=== PATIENT | female | born 1945 | race Caucasian/White ===

== ENCOUNTER 2018-07-25 21:47 | Inpatient (IN) | payer MEDICARE, OTHER ==
[~2018-07-25] VITALS: Ht 160 cm; Wt 80.9 kg
[2018-07-25 22:10] VITALS: BP 145/82
[2018-07-25] MEDS ORDERED: Solu-MEDROL 125mg Inj IVP ONE (22:15)
[2018-07-25] MEDS ORDERED: Albuterol ud Inhalation HHN ONE ×2 (22:15→23:15)
[2018-07-25] MEDS ORDERED: Ipratropium 0.02% Inh Soln 2.5ml UD HHN ONE (22:15)
--- NOTE | 2018-07-25 22:24 | Emergency Room Report ---
History of Present Illness General Chief Complaint: Dyspnea/Respdistress Source: Patient, EMS Present Illness HPI This is a 72-year-old female with history of atrial fibrillation and COPD. She presents with chief complaint shortness of breath. Onset was today. She was just discharged from [facility] and after a five-day hospital stay. She was well for a few hours and was walking around the house and became short of breath again. She called 911. EMS said she was tight and hypoxic. She was wheezing. They brought her here. Patient denies any fever chills. Denies any nausea vomiting. Nothing made it better. Exertion makes it worse. Allergies: Coded Allergies: DIPHENHYDRAMINE (Verified Allergy, Unknown, 07/25/18) ERYTHROMYCIN BASE (Verified Allergy, Unknown, 07/25/18) IBUPROFEN (Verified Allergy, Unknown, 07/25/18) SIMVASTATIN (Verified Allergy, Unknown, 07/25/18) SULFA (SULFONAMIDE ANTIBIOTICS) (Verified Allergy, Unknown, 07/25/18) Patient History Past Medical History: see triage record, old chart reviewed, HTN, CAD, AFib, COPD Past Surgical History: other Pertinent Family History: none Social History: Denies: smoking Now: No Immunizations: other Reviewed Nursing Documentation: PMH: Agreed; PSxH: Agreed Nursing Documentation-PMH Hx Cardiac Problems: Yes - High Cholesterol Hx Hypertension: Yes Hx COPD: Yes Hx Diabetes: Yes Review of Systems Eye: Denies: eye pain, blurred vision ENT: Denies: ear pain, nose congestion, throat swelling Respiratory: Reports: cough, shortness of breath, wheezing Cardiovascular: Denies: chest pain, palpitations Gastrointestinal: Denies: abdominal pain, diarrhea, nausea, vomiting Musculoskeletal: Denies: back pain, joint pain Skin: Denies: rash Neurological: Denies: headache, numbness Endocrine: Denies: increased thirst, increased urine Hematologic/Lymphatic: Denies: easy bruising All Other Systems: negative except mentioned in HPI Physical Exam Vital Signs Date Time Temp Pulse Resp B/P (MAP) Pulse Ox O2 Delivery O2 Flow Rate FiO2 07/25/18 21:53 98.2 108 22 145/82 100 Non-Rebreather vitals with tachycardia and hypoxia Sp02 EP Interpretation: reviewed, abnormal General Appearance: well appearing, alert, mild distress Head: normocephalic, atraumatic Eyes: bilateral eye PERRL, bilateral eye EOMI ENT: hearing grossly normal, normal pharynx Neck: full range of motion, supple, no meningismus Respiratory: chest non-tender, respiratory distress, decreased breath sounds, accessory muscle use, wheezing Cardiovascular #1: regular rate, rhythm, no murmur Gastrointestinal: normal bowel sounds, non tender, no mass, no organomegaly, no bruit, non-distended Musculoskeletal: back normal, gait/station normal, normal range of motion, swelling - One to 2+ pitting edema Psychiatric: mood/affect normal Skin: warm/dry Procedures Critical Care Time Critical Care Time Critical care is mandated in this patient who presented with respiratory distress secondary to chf and copd. Patient require my urgent intervention to attenuate the risks of respiratory collapse which may lead to cardiovascular collapse and . Critical care time is 35 minutes excluding any reportable procedure. Critical care time included evaluation, multiple reevaluation, looking at old charts, interpreting laboratory and diagnostic data, discussing case with patient and family and consultants, and charting. Medical Decision Making Diagnostic Impression: Primary Impression: Acute on chronic respiratory failure with hypoxia Additional Impressions: Rapid atrial fibrillation COPD with exacerbation Acute exacerbation of CHF (congestive heart failure) Qualified Codes: I50.9 - Heart failure, unspecified Anemia Qualified Codes: D64.9 - Anemia, unspecified Acute prerenal azotemia ER Course Patient with respiratory distress secondary to accommodation of CHF and COPD exacerbation. CHF may be caused by her rapid A. fib. Rate is controlled with Cardizem. Her elevated WBC may be secondary steroid induced and stress response. She is currently taking antibiotics. No obvious infiltrate on the chest x-ray. No evidence of ACS, PE, dissection to name a few. Patient is currently taking Xarelto. I discussed the case with Dr. Reveles who [facility]. Lab Results Impression labs with elevated BNP EKG Diagnostic Results Rate: tachycardiac Rhythm: other - afib ST Segments: other - NSST changes Rhythm Strip Diag. Results EP Interpretation: yes Rate: 90 Rhythm: no PVC's, no ectopy, other - afib Chest X-Ray Diagnostic Results Chest X-Ray Diagnostic Results : Chest X-Ray Ordered: Yes # of Views/Limited/Complete: 1 View Indication: Shortness of Breath EP Interpretation: Yes Interpretation: no consolidation, no pneumothorax, other - Cardiomegaly with mild vascular congestion Impression: Other - CM with chf Electronically Signed by: Gal Issa MD Last Vital Signs Date Time Temp Pulse Resp B/P (MAP) Pulse Ox O2 Delivery O2 Flow Rate FiO2 07/25/18 21:53 98.2 108 22 145/82 100 Non-Rebreather Status: improved Disposition: ADMITTED INPATIENT Condition: Serious Gal Issa MD Jul 25, 2018 22:24
[2018-07-26] VITALS (7 sets, daily range): BP systolic 134–158; BP diastolic 53–79
[2018-07-26 00:08] LABS: BASOPHILS % (AUTO) 0.3 % (0.0-2.0); EOSINOPHILS % (AUTO) 0.6 % (0.0-3.0); HEMATOCRIT 27.3 % (37.0-47.0); HEMOGLOBIN 8.5 G/DL (12.0-16.0); LYMPHOCYTES % (AUTO) 9.1 % (20.0-45.0); MEAN CORPUSCULAR VOLUME 79 FL (80-99); MONOCYTES % (AUTO) 7.7 % (1.0-10.0); NEUTROPHILS % (AUTO) 82.3 % (45.0-75.0); PLATELET COUNT 409 K/UL (150-450); RED BLOOD COUNT 3.43 M/UL (4.20-5.40); RED CELL DISTRIBUTION WIDTH 16.3 % (11.6-14.8); WHITE BLOOD COUNT 16.1 K/UL (4.8-10.8)
[2018-07-26] MEDS ORDERED: PREDNISONE10 MG ORAL (00:12)
[2018-07-26] MEDS ORDERED: ANORO ELLIPTA1 EACH PO (00:12)
[2018-07-26] MEDS ORDERED: ALBUTEROL SULF8.5 GM INH (00:12)
[2018-07-26] MEDS ORDERED: ALBUTEROL2.5 MG/3 M INH (00:12)
[2018-07-26] MEDS ORDERED: ASPIRIN81 MG ORAL (00:12)
[2018-07-26] MEDS ORDERED: QVAR7.3 GM INH (00:12)
[2018-07-26] MEDS ORDERED: PRAVASTATIN SOD20 M1 ORAL (00:12)
[2018-07-26] MEDS ORDERED: XARELTO10 MG ORAL (00:12)
[2018-07-26] MEDS ORDERED: VITAMIN D1000 UNI1 ORAL (00:12)
[2018-07-26] MEDS ORDERED: HYDROCODON-ACE1 EA15 ORAL (00:12)
[2018-07-26] MEDS ORDERED: FERROUS SULFAT325 MG ORAL (00:12)
[2018-07-26] MEDS ORDERED: DILTIAZEM 24HR120 M2 PO (00:12)
[2018-07-26 00:24] LABS: ANION GAP 6 mmol/L (5-15); BLOOD UREA NITROGEN 28 mg/dL (7-18); CALCIUM 10.2 MG/DL (8.5-10.1); CARBON DIOXIDE 33 MMOL/L (21-32); CHLORIDE 99 MMOL/L (98-107); CREATININE 1.1 MG/DL (0.55-1.30); POTASSIUM 4.2 MMOL/L (3.5-5.1); SODIUM 138 MMOL/L (136-145)
[2018-07-26 00:25] LABS: INR 1.3 (0.9-1.1)
[2018-07-26 00:37] LABS: ALANINE AMINOTRANSFERASE 22 U/L (12-78); ALBUMIN 3.6 G/DL (3.4-5.0); ALKALINE PHOSPHATASE 57 U/L (46-116); ASPARTATE AMINO TRANSFERASE 19 U/L (15-37); BILIRUBIN,TOTAL 0.6 MG/DL (0.2-1.0); CKMB 1.3 NG/ML (0.0-3.6); CREATINE KINASE 33 U/L (26-308)
[2018-07-26] MEDS ORDERED: dilTIAZem HCl 25mg/5ml Inj IVP ONE ×2 (01:15→02:00)
[2018-07-26 01:56] LABS: APPEARANCE,URINE CLEAR; BILIRUBIN, URINE NEGATIVE (NEGATIVE); COLOR,URINE PALE YELLOW; GLUCOSE, URINE (UA) NEGATIVE (NEGATIVE); KETONES,URINE NEGATIVE (NEGATIVE); LEUKOCYTE ESTERASE ,URINE 1+ (NEGATIVE); NITRITE,URINE NEGATIVE (NEGATIVE); PH,URINE 7 (4.5-8.0); PROTEIN,URINE 1+ (NEGATIVE); UROBILINOGEN,URINE NORMAL MG/DL (0.0-1.0)
[2018-07-26] MEDS: Albuterol/Ipratropium 3ml neb HHN PRN ×3 (05:31→20:30)
[2018-07-26] MEDS: Norco 5mg/325mg tab ORAL PRN ×2 (08:12→21:03)
[2018-07-26] MEDS: Vitamin D 1000 IU Tab ORAL SCH (08:12)
[2018-07-26] MEDS: Aspirin Baby 81mg ORAL SCH (08:12)
[2018-07-26] MEDS: dilTIAZem HCl CD 240mg cap ORAL SCH (08:13)
[2018-07-26] MEDS: Solu-MEDROL 40mg Inj IVP SCH ×3 (09:00→21:02)
[2018-07-26] MEDS: Qvar 40mcg Inhaler 6.8 gm INH SCH ×2 (10:06→23:29)
--- NOTE | 2018-07-26 11:36 | History & Physical ---
History and Physical History & Physicial dict COPD exac A fib RVR CHF DM Fran Reveles MD Jul 26, 2018 11:36
--- NOTE | 2018-07-26 13:09 | Diagnostic Imaging Report ---
Indication: Dyspnea Comparison: None A single view chest radiograph was obtained. Findings: No definite infiltrate or pulmonary vascular congestion identified. The heart is enlarged. The bones are osteopenic. Impression: No acute disease
--- NOTE | 2018-07-26 15:15 | History and Physical Report ---
DATE OF ADMISSION: 07/26/2018 HISTORY OF PRESENT ILLNESS: The patient is a 72-year-old woman who was discharged from [facility] yesterday and was home for a few hours, became short of breath and came to the emergency department here by paramedics. She was found to have COPD exacerbation and rapid atrial fibrillation as well as some edema and elevated natriuretic peptide suggesting heart failure. She is known to have COPD and diastolic dysfunction as well as chronic atrial fibrillation. She had rapid atrial fibrillation noted in the emergency department. Since admission, she improved with diltiazem, Lasix, steroids, and breathing treatments. PAST MEDICAL HISTORY: She is a past smoker and quit last year after 50 pack years of cigarettes. She does not drink excessively. She has a history of hypertension, coronary disease , atrial fibrillation, diastolic dysfunction, COPD, chronic kidney disease stage 3, diabetes type 2, obesity, major depressive disorder. ALLERGIES: Diphenhydramine, erythromycin, ibuprofen, simvastatin, sulfonamide antibiotics. MEDICATIONS: Reviewed and reconciled. REVIEW OF SYSTEMS: She is able to ambulate independently. She has chronic leg swelling which she attributes to a blood clot from her heart before she was on blood thinners. She is not aware of history of heart failure. She states she has chronic cough and sputum production over the past week or 2. The sputum has improved in color since starting on antibiotics. She has no nausea, vomiting, or diarrhea. There are no urinary complaints. She is poorly compliant with medications. She does not use her home oxygen regularly. PHYSICAL EXAMINATION: GENERAL: The patient is obese. VITAL SIGNS: Heart rate was 106 to 127 in the emergency department and presently 116. The blood pressure is 158/79, but improved to 135 systolic on repeat. There is no fever. Respirations 18 to 20. Saturation is 94% to 97% on 2 liters. SKIN: Warm and dry. HEENT: Head is normocephalic. NECK: No jugular venous distention. CHEST: Decreased breath sounds with poor air entry. CARDIAC: Rhythm is irregular and rapid. ABDOMEN: Soft and nontender. EXTREMITIES: 2+ edema. LABORATORY STUDIES: Show creatinine is 1.1, BUN 28, bicarbonate 33, blood sugar 204, calcium 10.2. Troponin is normal. Natriuretic peptide elevated at 2167. Urinalysis shows few red cells and 1+ protein. Coagulation is satisfactory. INR 1.3. White count is elevated at 16,100, hemoglobin is 8.5. Chest x-ray report is not available. According to the emergency department physician, there was cardiomegaly and mild vascular congestion. IMPRESSIONS: 1. Dyspnea due to COPD exacerbation and heart failure. 2. Diastolic heart failure. 3. Chronic bronchitis with acute exacerbation. 4. Anemia. 5. Leukocytosis due to steroids. 6. Diabetes. 7. Obesity. 8. Hypertension. 9. Rapid atrial fibrillation. PLAN: The patient will be treated with diuretics and calcium cecilia to slow the heart rate and continued on anticoagulants. Cardiology has been called for consultation. The patient has requested transfer back to [facility] and I placed her on the transfer list but there are no beds available at this time. Fran Reveles M.D. DR: Naty JOB#: [id number] CC: Estella Grant M.D. ; FAX#: [phone] [facility]
[2018-07-26] MEDS: Xarelto 15mg tab ORAL SCH (17:23)
[2018-07-26] MEDS ORDERED: dilTIAZem HCl 90mg tab ORAL SCH (23:00)
[2018-07-27] VITALS: BP 151/77
--- NOTE | 2018-07-27 03:45 | Consultation ---
DATE OF CONSULTATION: 07/26/2018 CARDIOLOGY CONSULTATION CONSULTING PHYSICIAN: Avery Camacho M.D. REFERRING PHYSICIAN: Fran Reveles M.D. REASON FOR CONSULT: Rapid atrial fibrillation. HISTORY OF PRESENT ILLNESS: This 72-year-old female with COPD, who was just from [facility] yesterday after five to seven-day hospital stay for COPD exacerbation. She was home for a few hours, became short of breath again and came to this emergency room by paramedics. On arrival, rapid atrial fibrillation was noted as well as signs of bronchospasm. She was admitted to the hospital for further management. Records were reviewed from her hospitalization at [facility]. Of note, the patient had her amlodipine and atenolol discontinued in favor of diltiazem. She also was diuresed minimally and treated for COPD predominantly. There is a record of prior echocardiogram from [facility], which revealed a normal ejection fraction. There is no data regarding her PA systolic pressure estimated at that time. PAST MEDICAL HISTORY: Includes type 2 diabetes mellitus, chronic kidney disease, COPD, atrial fibrillation, current diastolic dysfunction with history of congestive heart failure, coronary artery disease, hypertension, depression, and obesity. ALLERGIES: Include ibuprofen, simvastatin, erythromycin, diphenhydramine and sulfa. SOCIAL HISTORY: Prior smoker, quit with 50-pack year history last year. Social alcohol. No drug use. FAMILY HISTORY: Noncontributory. MEDICATIONS: Reviewed and reconciled from prior to admission. REVIEW OF SYSTEMS: She is independent in home with her function at baseline. She has had a prior blood clot in her lower extremities and has been on blood thinners in the past. She is not aware of any heart attack. She has a known history of atrial fibrillation. She has been on Xarelto for cardioembolic prophylaxis. PHYSICAL EXAMINATION: GENERAL: Moderately obese. VITAL SIGNS: Blood pressure 135/72, heart rate 111, and respiratory rate 20. The patient is afebrile. Oxygen saturation 97% on 2 L. NECK: Supple. No jugular venous distention. No accessory muscle use. LUNGS: Diminished breath sounds. CARDIAC: Irregularly irregular. Normal S1, S2 with no murmur. ABDOMEN: Soft. EXTREMITIES: With 2+ dependent edema. LABORATORY DATA: Troponin negative. Natriuretic peptide 2167. BUN 28, creatinine 1.1. EKG with atrial fibrillation, nonspecific ST-T wave changes and rapid ventricular response. Chest x-ray, mild pulmonary venous congestion. IMPRESSION: 1. Chronic obstructive pulmonary disease with acute exacerbation. 2. Atrial fibrillation with rapid ventricular response. 3. Acute on chronic diastolic congestive heart failure precipitated by above. 4. Chronic kidney disease. 5. Anemia of chronic kidney disease. 6. Type 2 diabetes mellitus requiring insulin. 7. Obesity. 8. Hypertensive heart disease. PLAN: 1. Advance diltiazem for better rate control. 2. Continue cardioembolic prophylaxis with rivaroxaban. 3. Diuresis to be addressed on a daily basis based on clinical parameters. 4. Pulmonary management as per Dr. Reveles. Avery Camacho M.D. DR: CHRISSIE JOB#: [id number] CC:
[2018-07-27 04:00] VITALS: BP 133/59
[2018-07-27] MEDS: Albuterol/Ipratropium 3ml neb HHN PRN ×3 (04:30→20:21)
[2018-07-27] MEDS: Solu-MEDROL 40mg Inj IVP SCH ×3 (06:12→21:40)
[2018-07-27 08:00] VITALS: BP 142/73
[2018-07-27] MEDS: Vitamin D 1000 IU Tab ORAL SCH (08:11)
[2018-07-27] MEDS: Aspirin Baby 81mg ORAL SCH (08:11)
[2018-07-27] MEDS: dilTIAZem HCl CD 240mg cap ORAL SCH (08:11)
[2018-07-27] MEDS: Qvar 40mcg Inhaler 6.8 gm INH SCH ×2 (10:01→21:05)
[2018-07-27 10:34] LABS: HEMATOCRIT 28.8 % (37.0-47.0); HEMOGLOBIN 8.9 G/DL (12.0-16.0); MEAN CORPUSCULAR VOLUME 81 FL (80-99); PLATELET COUNT 512 K/UL (150-450); RED BLOOD COUNT 3.56 M/UL (4.20-5.40); WHITE BLOOD COUNT 21.8 K/UL (4.8-10.8)
[2018-07-27 12:00] VITALS: BP 133/64
--- NOTE | 2018-07-27 12:40 | Pulmonology Progress Note ---
Assessment/Plan Assessment/Plan 1. Dyspnea due to COPD exacerbation and heart failure. 2. Diastolic heart failure. 3. Chronic bronchitis with acute exacerbation. 4. Anemia. 5. Leukocytosis due to steroids. 6. Diabetes. 7. Obesity. 8. Hypertension. 9. Rapid atrial fibrillation. HR still high less SOB WBC high due to steroids no transfer planned per CS patient advised cont diuresis taper steroids Subjective Respiratory: Reports: shortness of breath Cardiovascular: Reports: palpitations Musculoskeletal: Reports: swelling Allergies: Coded Allergies: DIPHENHYDRAMINE (Verified Allergy, Unknown, 07/25/18) ERYTHROMYCIN BASE (Verified Allergy, Unknown, 07/25/18) IBUPROFEN (Verified Allergy, Unknown, 07/25/18) SIMVASTATIN (Verified Allergy, Unknown, 07/25/18) SULFA (SULFONAMIDE ANTIBIOTICS) (Verified Allergy, Unknown, 07/25/18) Objective Last 24 Hour Vital Signs Date Time Temp Pulse Resp B/P (MAP) Pulse Ox O2 Delivery O2 Flow Rate FiO2 07/27/18 12:00 97.9 103 20 133/64 (87) 97 07/27/18 10:04 96 20 95 Nasal Cannula 2.0 28 07/27/18 10:02 102 22 96 Nasal Cannula 2.0 28 07/27/18 10:02 99 22 95 Nasal Cannula 2.0 28 07/27/18 09:57 98 20 94 Nasal Cannula 2.0 28 07/27/18 09:00 Nasal Cannula 2.0 07/27/18 08:11 123 142/73 07/27/18 08:00 96.8 123 22 142/73 (96) 95 07/27/18 07:40 120 07/27/18 07:11 Nasal Cannula 2.0 28 07/27/18 07:00 99 22 Nasal Cannula 2.0 28 07/27/18 07:00 95 Nasal Cannula 2.0 28 07/27/18 04:45 95 20 95 Nasal Cannula 2.0 28 07/27/18 04:30 90 18 93 Nasal Cannula 2.0 28 07/27/18 04:00 99 07/27/18 04:00 97.7 99 24 133/59 (83) 95 07/27/18 00:00 97.6 109 20 151/77 (101) 95 07/27/18 00:00 94 07/26/18 23:29 106 20 94 Nasal Cannula 2.0 28 07/26/18 23:29 97 140/70 07/26/18 23:29 106 20 94 Nasal Cannula 2.0 28 07/26/18 21:00 Nasal Cannula 2.0 07/26/18 20:43 107 20 92 Nasal Cannula 2.0 28 07/26/18 20:31 97 18 Nasal Cannula 2.0 28 07/26/18 20:31 97 18 94 Nasal Cannula 2.0 28 07/26/18 20:31 Nasal Cannula 2.0 28 07/26/18 20:31 94 Nasal Cannula 2.0 28 07/26/18 20:00 117 07/26/18 20:00 97.7 111 18 142/69 (93) 94 07/26/18 16:00 96.6 102 20 146/53 (84) 94 07/26/18 15:27 117 07/26/18 14:04 115 20 96 Nasal Cannula 2.0 28 07/26/18 13:49 110 18 94 Nasal Cannula 2.0 28 Intake and Output 07/26/18 07/27/18 18:59 06:59 Intake Total 630 ml Output Total 300 ml 600 ml Balance 330 ml -600 ml Intake Oral 630 ml Output Urine Total 300 ml 600 ml General Appearance: no acute distress HEENT: atraumatic Respiratory/Chest: decreased breath sounds Cardiovascular: tachycardia, irregularly irregular Extremities: other - edema 2+ Laboratory Tests 07/26/18 16:25: Troponin I 0.004 07/27/18 00:19: Troponin I 0.006 07/27/18 10:10: Troponin I 0.004, White Blood Count 21.8H, Red Blood Count 3.56L, Hemoglobin 8.9L, Hematocrit 28.8L, Mean Corpuscular Volume 81, Mean Corpuscular Hemoglobin 25.0L, Mean Corpuscular Hemoglobin Concent 30.9L, Red Cell Distribution Width 17.0H, Platelet Count 512H, Mean Platelet Volume 6.6, Neutrophils (%) (Auto) , Lymphocytes (%) (Auto) , Monocytes (%) (Auto) , Eosinophils (%) (Auto) , Basophils (%) (Auto) , Neutrophils % (Manual) [Pending], Lymphocytes % (Manual) [Pending], Platelet Estimate [Pending], Platelet Morphology [Pending], Pro-B- Type Natriuretic Peptide 3353H Current Medications Medications (Trade) Dose Ordered Sig/Giancarlo Route PRN Reason Start Time Stop Time Status Last Admin Dose Admin Acetaminophen/ Hydrocodone Bitart ([place] 5/325) 1 tab Q6H PRN ORAL For Pain 07/26/18 04:30 08/02/18 04:29 07/26/18 21:03 Albuterol/ Ipratropium (Albuterol/ Ipratropium) 3 ml Q4HRT PRN HHN Shortness of Breath 07/26/18 04:30 07/31/18 04:29 07/27/18 10:02 Aspirin (ASA) 81 mg DAILY ORAL 07/26/18 09:00 08/25/18 08:59 07/27/18 08:11 Beclomethasone Dipropionate (Qvar 40 Inhaler) 1 puff BIDRT INH 07/26/18 10:00 08/25/18 09:59 07/27/18 10:01 Diltiazem HCl (Cardizem CD) 240 mg DAILY ORAL 07/26/18 09:00 08/25/18 08:59 07/27/18 08:11 Ferrous Sulfate (Feosol) 325 mg TWICE A DAY ORAL 07/26/18 09:00 08/25/18 08:59 07/27/18 08:11 Furosemide (Lasix) 40 mg BID IV 07/27/18 18:00 08/26/18 17:59 Methylprednisolone Sodium Succinate (Solu-MEDROL) 20 mg EVERY 8 HOURS IVP 07/27/18 14:00 08/26/18 13:59 Pravastatin Sodium (Pravachol) 20 mg BEDTIME ORAL 07/26/18 21:00 08/25/18 20:59 07/26/18 21:02 Rivaroxaban (Xarelto) 15 mg DAILY@1700 ORAL 07/26/18 17:00 08/25/18 16:59 07/26/18 17:23 Vitamin D (Vitamin D) 1,000 intlu DAILY ORAL 07/26/18 09:00 08/25/18 08:59 07/27/18 08:11 Fran Reveles MD Jul 27, 2018 12:40
[2018-07-27 16:00] VITALS: BP 146/65
[2018-07-27] MEDS: Xarelto 15mg tab ORAL SCH (17:33)
[2018-07-27 20:00] VITALS: BP 126/68
[2018-07-27] MEDS: Norco 5mg/325mg tab ORAL PRN (21:41)
[2018-07-27] MEDS: dilTIAZem HCl CD 180mg cap ORAL SCH (21:42)
[2018-07-28] VITALS: BP 135/66
[2018-07-28] MEDS: Albuterol/Ipratropium 3ml neb HHN PRN ×4 (00:28→13:51)
--- NOTE | 2018-07-28 01:00 | Progress Note ---
DATE: 07/27/2018 SUBJECTIVE: The patient had an echocardiogram today. Ejection fraction was at 65 to 70 percent. There was no specific valve abnormality. Mild tricuspid regurgitation was noted and severe pulmonary hypertension seen. The patient still has shortness of breath. She refused the diltiazem capsule earlier because it was too big to swallow. She continues to have atrial fibrillation with increased ventricular rate. PHYSICAL EXAMINATION: VITAL SIGNS: Blood pressure 133/64, pulse 103, and respirations 20. Afebrile. Oxygen saturation on 2 liters 95%. LUNGS: Diminished breath sounds. Scattered wheezes. HEART: Irregularly irregular rhythm. Normal S1, S2. ABDOMEN: Soft. EXTREMITIES: No edema. LABORATORY DATA: Noted. IMPRESSION: 1. Chronic obstructive pulmonary disease with acute exacerbation. 2. Acute bronchospasm. 3. Atrial fibrillation chronic with rapid ventricular response. 4. Severe pulmonary hypertension. 5. Recovering bronchitis and pneumonia. 6. Acute on chronic diastolic congestive heart failure. PLAN: 1. Hold additional diuresis. 2. Advance diltiazem to two smaller capsules of lower doses. 3. Continue cardioembolic prophylaxis with apixaban. 4. Respiratory therapy per Dr. Reveles. Avery Camacho M.D. DR: GENI JOB#: [id number] CC:
[2018-07-28 04:00] VITALS: BP 141/62
[2018-07-28] MEDS: Solu-MEDROL 40mg Inj IVP SCH ×2 (05:32→14:15)
[2018-07-28 07:59] LABS: HEMATOCRIT 26.8 % (37.0-47.0); HEMOGLOBIN 8.4 G/DL (12.0-16.0); MEAN CORPUSCULAR VOLUME 80 FL (80-99); PLATELET COUNT 450 K/UL (150-450); RED BLOOD COUNT 3.34 M/UL (4.20-5.40)
[2018-07-28 08:00] VITALS: BP 127/77
[2018-07-28 08:13] LABS: WHITE BLOOD COUNT 22.5 K/UL (4.8-10.8)
[2018-07-28 08:15] LABS: ANION GAP 7 mmol/L (5-15); BLOOD UREA NITROGEN 46 mg/dL (7-18); CALCIUM 9.7 MG/DL (8.5-10.1); CARBON DIOXIDE 36 MMOL/L (21-32); CHLORIDE 95 MMOL/L (98-107); CREATININE 1.4 MG/DL (0.55-1.30); POTASSIUM 3.6 MMOL/L (3.5-5.1); SODIUM 138 MMOL/L (136-145)
[2018-07-28] MEDS: dilTIAZem HCl CD 180mg cap ORAL SCH ×2 (08:27→20:46)
[2018-07-28] MEDS: Aspirin Baby 81mg ORAL SCH (08:27)
[2018-07-28] MEDS: Vitamin D 1000 IU Tab ORAL SCH (08:28)
[2018-07-28] MEDS: Norco 5mg/325mg tab ORAL PRN ×2 (09:01→20:47)
[2018-07-28] MEDS: Qvar 40mcg Inhaler 6.8 gm INH SCH ×2 (09:45→22:40)
[2018-07-28 12:00] VITALS: BP 135/63
[2018-07-28 16:00] VITALS: BP 142/66
--- NOTE | 2018-07-28 16:31 | Pulmonology Progress Note ---
Assessment/Plan Assessment/Plan 1. Dyspnea due to COPD exacerbation and heart failure. 2. Diastolic heart failure. 3. Chronic bronchitis with acute exacerbation. 4. Anemia. 5. Leukocytosis due to steroids. 6. Diabetes. 7. Obesity. 8. Hypertension. 9. Rapid atrial fibrillation. HR still high less SOB WBC high due to steroids BUN/Cr higher cont diuresis, add losartan 50 mg bid taper steroids oral dc plan tomorrow needs home O2 Subjective Respiratory: Reports: dry cough; Denies: shortness of breath Musculoskeletal: Reports: swelling Allergies: Coded Allergies: DIPHENHYDRAMINE (Verified Allergy, Unknown, 07/25/18) ERYTHROMYCIN BASE (Verified Allergy, Unknown, 07/25/18) IBUPROFEN (Verified Allergy, Unknown, 07/25/18) SIMVASTATIN (Verified Allergy, Unknown, 07/25/18) SULFA (SULFONAMIDE ANTIBIOTICS) (Verified Allergy, Unknown, 07/25/18) Objective Last 24 Hour Vital Signs Date Time Temp Pulse Resp B/P (MAP) Pulse Ox O2 Delivery O2 Flow Rate FiO2 07/28/18 14:05 104 21 96 Nasal Cannula 3.0 32 07/28/18 13:51 104 23 92 Nasal Cannula 3.0 32 07/28/18 12:00 98.3 97 18 135/63 (87) 97 07/28/18 12:00 108 07/28/18 09:55 101 20 97 Nasal Cannula 3.0 32 07/28/18 09:47 Nasal Cannula 07/28/18 09:47 Nasal Cannula 07/28/18 09:44 Nasal Cannula 3.0 32 07/28/18 09:44 102 22 93 Nasal Cannula 3.0 32 07/28/18 09:44 102 24 Nasal Cannula 3.0 32 07/28/18 09:44 93 Nasal Cannula 3.0 32 07/28/18 09:00 Nasal Cannula 2.0 Nasal Cannula 2.0 07/28/18 08:27 93 127/77 07/28/18 08:00 98.4 97 18 127/77 (94) 93 07/28/18 08:00 129 07/28/18 04:53 98 16 98 Nasal Cannula 2.0 28 07/28/18 04:45 99 16 95 Nasal Cannula 2.0 28 07/28/18 04:00 91 07/28/18 04:00 98.5 96 20 141/62 (88) 99 07/28/18 00:34 93 16 99 Nasal Cannula 28 07/28/18 00:28 92 16 97 Room Air 2.0 28 07/28/18 00:00 97.8 96 20 135/66 (89) 97 07/28/18 00:00 90 07/27/18 21:42 102 126/68 07/27/18 21:10 102 20 98 Nasal Cannula 2.0 28 07/27/18 21:06 104 20 97 Nasal Cannula 2.0 28 07/27/18 21:00 Nasal Cannula 2.0 07/27/18 20:26 95 16 98 Nasal Cannula 28 07/27/18 20:21 88 18 92 2.0 07/27/18 20:00 98.1 103 24 126/68 (87) 94 07/27/18 20:00 96 07/27/18 19:05 95 Nasal Cannula 2.0 28 07/27/18 19:05 84 18 Nasal Cannula 2.0 28 07/27/18 19:05 Nasal Cannula 2.0 28 Intake and Output 07/27/18 07/28/18 18:59 06:59 Intake Total 360 ml 240 ml Balance 360 ml 240 ml Intake Oral 360 ml 240 ml # Voids 3 Objective edema 2+ General Appearance: no acute distress Respiratory/Chest: decreased breath sounds Cardiovascular: regularly irregular, tachycardia Microbiology Date/Time Source Procedure Growth Status 07/26/18 01:40 Nasal Nares MRSA Culture - Final NO METHICILLIN RESISTANT STAPH AUREUS... Complete Laboratory Tests 07/28/18 05:23: White Blood Count 22.5*H, Red Blood Count 3.34L, Hemoglobin 8.4L, Hematocrit 26.8L, Mean Corpuscular Volume 80, Mean Corpuscular Hemoglobin 25.0L, Mean Corpuscular Hemoglobin Concent 31.2L, Red Cell Distribution Width 17.0H, Platelet Count 450, Mean Platelet Volume 6.3L, Neutrophils (%) (Auto) , Lymphocytes (%) (Auto) , Monocytes (%) (Auto) , Eosinophils (%) (Auto) , Basophils (%) (Auto) , Differential Total Cells Counted 100, Neutrophils % ( Manual) 92H, Lymphocytes % (Manual) 4L, Monocytes % (Manual) 3, Eosinophils % ( Manual) 0, Basophils % (Manual) 0, Band Neutrophils 1, Platelet Estimate IncreasedH, Platelet Morphology Normal, Hypochromasia 1+, Anisocytosis 1+, Sodium Level 138, Potassium Level 3.6, Chloride Level 95L, Carbon Dioxide Level 36H, Anion Gap 7, Blood Urea Nitrogen 46H, Creatinine 1.4H, Estimat Glomerular Filtration Rate , Glucose Level 295H, Calcium Level 9.7 Current Medications Medications (Trade) Dose Ordered Sig/Giancarlo Route PRN Reason Start Time Stop Time Status Last Admin Dose Admin Acetaminophen/ Hydrocodone Bitart ([place] 5/325) 1 tab Q6H PRN ORAL For Pain 07/26/18 04:30 08/02/18 04:29 07/28/18 09:01 Albuterol/ Ipratropium (Albuterol/ Ipratropium) 3 ml Q4HRT PRN HHN Shortness of Breath 07/26/18 04:30 07/31/18 04:29 07/28/18 13:51 Aspirin (ASA) 81 mg DAILY ORAL 07/26/18 09:00 08/25/18 08:59 07/28/18 08:27 Beclomethasone Dipropionate (Qvar 40 Inhaler) 1 puff BIDRT INH 07/26/18 10:00 08/25/18 09:59 07/27/18 21:05 Diltiazem HCl (Cardizem CD) 180 mg Q12HR ORAL 07/27/18 21:00 08/26/18 20:59 07/28/18 08:27 Ferrous Sulfate (Feosol) 325 mg TWICE A DAY ORAL 07/26/18 09:00 08/25/18 08:59 07/28/18 08:27 Furosemide (Lasix) 40 mg BID IV 07/27/18 18:00 08/26/18 17:59 07/28/18 08:28 Methylprednisolone Sodium Succinate (Solu-MEDROL) 20 mg EVERY 8 HOURS IVP 07/27/18 14:00 08/26/18 13:59 07/28/18 14:15 Pravastatin Sodium (Pravachol) 20 mg BEDTIME ORAL 07/26/18 21:00 08/25/18 20:59 07/27/18 21:40 Rivaroxaban (Xarelto) 15 mg DAILY@1700 ORAL 07/26/18 17:00 08/25/18 16:59 07/27/18 17:33 Vitamin D (Vitamin D) 1,000 intlu DAILY ORAL 07/26/18 09:00 08/25/18 08:59 07/28/18 08:28 Fran Reveles MD Jul 28, 2018 16:31
[2018-07-28] MEDS: Xarelto 15mg tab ORAL SCH (17:16)
[2018-07-28] MEDS: Albuterol/Ipratropium 3ml neb HHN SCH ×2 (19:21→23:02)
[2018-07-28 20:00] VITALS: BP 145/68
[2018-07-28] MEDS: Losartan 50mg tab ORAL SCH (20:45)
[2018-07-28] MEDS ORDERED: Atenolol 25mg tab ORAL ONE (22:30)
--- NOTE | 2018-07-28 23:45 | Progress Note ---
DATE: 07/28/2018 SUBJECTIVE: The patient is concerned about her medications upon discharge and the multiple changes over the last 2 hospitalizations that have occurred. Concerns include cost and compliance issues as well as confusion about what to take. The patient has less shortness of breath. She remains hypoxic on room air. She remains in atrial fibrillation with slightly improved rate control. OBJECTIVE: VITAL SIGNS: Blood pressure 145/68, pulse 104, and respirations 20. LUNGS: With diminished breath sounds. Few wheezes. HEART: Irregularly irregular rhythm. Normal S1, S2. ABDOMEN: Soft. EXTREMITIES: No edema. IMPRESSION: 1. Chronic obstructive pulmonary disease exacerbation. 2. Leukocytosis due to steroids. 3. Anemia due to chronic disease. 4. Acute and chronic diastolic congestive heart failure. 5. Chronic atrial fibrillation. 6. Coagulopathy due to rivaroxaban. 7. Increased ventricular response may be partially due to beta-cecilia withdrawal as that drug was discontinued just prior to admission here. PLAN: 1. Respiratory therapy. 2. Home O2 for hypoxia. 3. Inhaled bronchodilators. 4. Steroid taper. 5. Restart low-dose beta-cecilia. 6. Maintain diltiazem. 7. Continue rivaroxaban for cardioembolic prophylaxis. Avery Camacho M.D. DR: GENI JOB#: [id number] CC:
[2018-07-29] VITALS: BP 147/70
[2018-07-29] MEDS: Albuterol/Ipratropium 3ml neb HHN SCH ×6 (03:42→23:06)
[2018-07-29 04:00] VITALS: BP 124/59
[2018-07-29 08:00] VITALS: BP 117/62
[2018-07-29 08:10] LABS: HEMATOCRIT 26.2 % (37.0-47.0); HEMOGLOBIN 8.3 G/DL (12.0-16.0); MEAN CORPUSCULAR VOLUME 80 FL (80-99); PLATELET COUNT 431 K/UL (150-450); RED BLOOD COUNT 3.26 M/UL (4.20-5.40); RED CELL DISTRIBUTION WIDTH 16.6 % (11.6-14.8); WHITE BLOOD COUNT 20.3 K/UL (4.8-10.8)
[2018-07-29 08:22] LABS: ANION GAP 7 mmol/L (5-15); BLOOD UREA NITROGEN 47 mg/dL (7-18); CALCIUM 9.5 MG/DL (8.5-10.1); CARBON DIOXIDE 35 MMOL/L (21-32); CHLORIDE 92 MMOL/L (98-107); CREATININE 1.4 MG/DL (0.55-1.30); POTASSIUM 3.7 MMOL/L (3.5-5.1); SODIUM 134 MMOL/L (136-145)
[2018-07-29] MEDS ORDERED: ATENOLOL25 MG ORAL (08:52)
[2018-07-29] MEDS ORDERED: PREDNISONE20 MG ORAL (08:52)
[2018-07-29] MEDS ORDERED: FUROSEMIDE40 MG ORAL (08:52)
[2018-07-29] MEDS ORDERED: CARDIZEM CD180 MG ORAL (08:52)
[2018-07-29] MEDS ORDERED: COZAAR50 MG ORAL (08:52)
[2018-07-29] MEDS: Vitamin D 1000 IU Tab ORAL SCH (10:34)
[2018-07-29] MEDS: Losartan 50mg tab ORAL SCH ×2 (10:34→20:22)
[2018-07-29] MEDS: Atenolol 25mg tab ORAL SCH (10:34)
[2018-07-29] MEDS: Aspirin Baby 81mg ORAL SCH (10:34)
[2018-07-29] MEDS: dilTIAZem HCl CD 180mg cap ORAL SCH ×2 (10:35→20:22)
[2018-07-29] MEDS: Qvar 40mcg Inhaler 6.8 gm INH SCH ×2 (11:40→20:27)
[2018-07-29 12:00] VITALS: BP 124/65
[2018-07-29 16:00] VITALS: BP 138/55
--- NOTE | 2018-07-29 16:15 | Progress Note ---
CARDIOLOGY PROGRESS NOTE DATE: 07/29/2018 SUBJECTIVE: The patient has less shortness of breath and congestion. She is awaiting for oxygen delivery. She is not at her baseline "by any means." She does feel stronger and wants to go home to take care of her pet. OBJECTIVE: VITAL SIGNS: Blood pressure 124/65, pulse 85, and respirations 17. NECK: Supple. LUNGS: Coarse breath sounds and rhonchi. Few wheezes. CARDIAC: Irregularly irregular rhythm. Normal S1, S2 with a fourth heart sound. ABDOMEN: Soft. EXTREMITIES: Trace edema. LABORATORY DATA: White count 20, hemoglobin 8.3. Sodium 134, potassium 3.7, bicarb 37, BUN 47, and creatinine 1.4. IMPRESSION: 1. Chronic obstructive pulmonary disease exacerbation, improving. 2. Atrial fibrillation, now with controlled ventricular response. 3. Recovering bronchopneumonia, paroxysmal bronchospasm, hypoxia. PLAN: 1. Home O2. 2. Continue inhaled bronchodilators. 3. Continue steroid taper. 4. Maintain current cardiovascular regimen. 5. Transition to oral maintenance dose diuretic of 40 mg daily. 6. Cardioembolic prophylaxis with rivaroxaban. Avery Camacho M.D. DR: CHRISSIE JOB#: [id number] CC:
[2018-07-29] MEDS: Xarelto 15mg tab ORAL SCH (17:47)
[2018-07-29] MEDS: Norco 5mg/325mg tab ORAL PRN (23:50)
[2018-07-30] MEDS: Albuterol/Ipratropium 3ml neb HHN SCH ×3 (03:13→11:45)
[2018-07-30 08:00] VITALS: BP 147/66
[2018-07-30] MEDS: dilTIAZem HCl CD 180mg cap ORAL SCH (08:42)
[2018-07-30] MEDS: Vitamin D 1000 IU Tab ORAL SCH (08:42)
[2018-07-30] MEDS: Atenolol 25mg tab ORAL SCH (08:43)
[2018-07-30] MEDS: Aspirin Baby 81mg ORAL SCH (08:43)
[2018-07-30] MEDS: Losartan 50mg tab ORAL SCH (08:43)
[2018-07-30] MEDS ORDERED: Furosemide 40mg tab ORAL SCH (09:00)
[2018-07-30] MEDS: Norco 5mg/325mg tab ORAL PRN (09:04)
[2018-07-30] MEDS: Qvar 40mcg Inhaler 6.8 gm INH SCH (10:00)
[2018-07-30 12:00] VITALS: BP 141/61
--- NOTE | 2018-07-31 03:00 | Progress Note ---
DATE: 07/30/2018 CARDIOLOGY PROGRESS NOTE SUBJECTIVE: The patient's discharge was held. Pending oxygen delivery. She is anxious to go home to take care of her pets. She does have shortness of breath with activity, but has improved. She does not think she is wheezing. PHYSICAL EXAMINATION: VITAL SIGNS: Blood pressure 141/61, pulse 86, respiratory rate 20, afebrile, and oxygen saturation on 2 L is 93% to 95%. LUNGS: Diminished breath sounds. Few expiratory wheezes. CARDIAC: Irregularly irregular rhythm. Normal S1 and S2. ABDOMEN: Soft. EXTREMITIES: No edema. LABORATORY DATA: No new laboratories. IMPRESSION: 1. Chronic hypoxia. 2. Chronic obstructive pulmonary disease exacerbation. 3. Recovering bronchopneumonia. 4. Chronic atrial fibrillation with controlled ventricular response now. 5. Diastolic dysfunction with compensated congestive heart failure. PLAN: 1. Maintenance diuretic dosing. Continue combination of Cardizem and low-dose beta-cecilia for rate control and anti-failure benefits of . 2. Inhaled bronchodilators. 3. Steroid taper. 4. Home O2. 5. Outpatient Cardiology followup to be arranged with her insurance coverage provider. Avery Camacho M.D. DR: NITESH JOB#: [id number] CC:
--- NOTE | 2018-08-01 09:41 | Discharge Summary ---
Discharge Summary Discharge Summary _ DATE OF ADMISSION: 07/26/2018 DATE OF DISCHARGE: 07/30/2018 DISCHARGED BY: Dr. Reveles REASON FOR ADMISSION: 72 years old female with past medical history of smoking, quit last year after 50 pack-years of cigarette, hypertension, coronary artery disease, atrial fibrillation, diastolic dysfunction, COPD, chronic kidney disease stage III, diabetes mellitus type 2, obesity, major depressive disorder, was discharged few hours ago from [facility] prior to presentation to [facility] emergency department. She became short of breath and called paramedics. Upon presentation patient was tachycardic ,tachypneic and required placement of supplemental oxygen. Upon evaluation WBC 16.1, hemoglobin 8.5 hematocrit 27.3. INR 1.3. Troponin negative. EKG revealed atrial fibrillation with rapid ventricular response. BUN 28, creatinine 1.1. CO2 33. Pro BNP 2167. Chest x-ray revealed no evidence of acute cardiopulmonary pathology. Cardiomegaly with osteopenia noted. Patient was found to have COPD exacerbation and rapid atrial fibrillation along with elevated pro BNP and peripheral edema suggesting heart failure. Heart rate control was achieved with Cardizem. 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 Camacho [facility]: Patient admitted to telemetry floor. Cardiology consult was requested. Supplemental oxygen provided as needed to keep pulse oximetry above 90%. Pulmonary toilet provided via nebulizing therapy. Patient was started on intravenous steroids with fast tapering down to oral prednisone. CXR revealed no acute cardiopulmonary pathology. Antitussive provided as needed. Patient was counseled to continue abstinence from smoking. Patient initially started on intravenous diuretics with close monitoring of volumes and cardiorenal parameters. Triage Clinician closely followed. Serial troponin were negative. EKG revealed atrial fibrillation . Heart rate was controlled with Cardizem and beta-cecilia. Anticoagulation with Xarelto continued. Patient was ruled out for AL. Echocardiogram revealed preserved ejection fraction 55-70%. No evidence of wall motion abnormality. Mild left ventricular hypertrophy. Mild to moderate mitral regurgitation. Right ventricular systolic pressure of 75 consistent with severe pulmonary hypertension . Blood rpessure was managed with beta-cecilia, ARB and calcium channel cecilia, and remained stable. Antiplatelet therapy with aspirin and statin were continued. Leukocytosis was reactive, due to steroids. Steroids tapered fast to oral Prednisone, no evidence of infection. Renal parameters and electrolytes were closely monitored. Electrolytes corrected as needed. Hemoglobin and hematocrit were closely monitored with goal to keep hemoglobin above 7. Prior to discharge hemoglobin 8.3 hematocrit 26.2, remained at the baseline. Blood sugar was closely monitored and managed with current regimen. Patient required home oxygen. Case management arranged home oxygen and home health services. Oxygen tank was delivered to bedside prior to discharge. Patient was stable for discharge home. FINAL DIAGNOSES: COPD with acute exacerbation Chronic respiratory failure with hypoxia Atrial fibrillation with rapid ventricular response Acute on chronic diastolic congestive heart failure ( precipitated by COPD exacerbation and atrial fibrillation with rapid ventricular response) Chronic bronchitis with acute exacerbation Chronic kidney disease Anemia of chronic kidney disease Leukocytosis , likely reactive secondary to steroids Diabetes mellitus type 2 Hypertensive heart disease Severe pulmonary HTN Obesity History of long time smoking DISCHARGE MEDICATIONS: See Medication Reconciliation list. DISCHARGE INSTRUCTIONS: Patient was discharged home with home health services. Follow up with primary care provider in one week. I have been assigned to dictate discharge summary for this account. I was not involved in the patient's management. Sylvia Escobar NP Aug 01, 2018 09:41
--- NOTE | 2018-08-02 15:12 | Cardiology Report ---
APPROVED REPORT EXAM: Two-dimensional and M-mode echocardiogram with Doppler and color Doppler. INDICATION S.O.B M-Mode DIMENSIONS IVSd0.9 (0.7-1.1cm)Left Atrium (MM)3.6 (1.6-4.0cm) LVDd4.4 (3.5-5.6cm)Aortic Root3.1 (2.0-3.7cm) PWd0.6 (0.7-1.1cm)Aortic Cusp Exc.1.7 (1.5-2.0cm) IVSs1.4 cm LVDs1.9 (2.5-4.0cm) PWs1.7 cm Normal left ventricular chamber size, systolic function and wall motion . Left ventricular ejection fraction estimated to be 65-70 %. Mild left ventricular hypertrophy by 2-D. No evidence of pericardial effusion. All other cardiac chamber sizes are within normal limits. Moderately focal aortic valve sclerosis with adequate cusp excursion. Moderately thickened mitral valve leaflets with normal excursion. Mitral annulus and aortic root calcification. Faint shadows in LA noted clinical correlation on closure of the mitral valve , likely reverberation artifact , vegetation not excluded . Pulmonic valve not well visualized. Normal tricuspid valve structure. IVC dilated at 3.0 cm without physiologic collapse suggestive of increased RA pressure. A color flow and spectral Doppler study was performed and revealed: No aortic regurgitation. Mild mitral regurgitation. Left ventricular diastolic function can not detemined due to A-FIB. Mild tricuspid regurgitation. Tricuspid systolic velocities suggests peak right ventricular systolic pressure of 75 mmHg,L consistent with severe pumonary hypertension .
== END 2018-07-30 14:05 | disposition home or self-care (01) | DRG 291 ==
LOC: EDBD 21:47 → EMR 22:10 → 2E 07-26 01:06 → EDBEDREQ 07-26 02:51
DX: I13.0 Hypertensive heart and chronic kidney disease with heart failure and stage 1 through stage 4 chronic kidney disease, or unspecified chronic kidney disease (principal); I50.33 Acute on chronic diastolic (congestive) heart failure; J44.1 Chronic obstructive pulmonary disease with (acute) exacerbation; N18.3 Chronic kidney disease, stage 3 (moderate); E11.22 Type 2 diabetes mellitus with diabetic chronic kidney disease; I48.2 Chronic atrial fibrillation; Z87.891 Personal history of nicotine dependence; I25.10 Atherosclerotic heart disease of native coronary artery without angina pectoris; F32.9 Major depressive disorder, single episode, unspecified; I34.0 Nonrheumatic mitral (valve) insufficiency; J42 Unspecified chronic bronchitis; D63.1 Anemia in chronic kidney disease; T38.0X5A Adverse effect of glucocorticoids and synthetic analogues, initial encounter; D72.829 Elevated white blood cell count, unspecified; I27.20 Pulmonary hypertension, unspecified; E66.9 Obesity, unspecified; Z88.6 Allergy status to analgesic agent; Z88.2 Allergy status to sulfonamides; Z88.8 Allergy status to other drugs, medicaments and biological substances; Z79.01 Long term (current) use of anticoagulants; Z68.30 Body mass index [BMI] 30.0-30.9, adult
CPT/HCPCS: 36415; 71045; 80048; 80053; 81003; 82550; 82553; 83880; 84484; 85007; 85025; 85610; 85730; 87081; 93005; 93306; 94640; 94664; 94760; 96374; 96375; 96376; 99291; J7620